=== PATIENT | male | born 1995 | race Two or more races ===

== ENCOUNTER 2018-04-13 08:42 | Day surgery (SDC) | payer OTHER ==
[2018-04-13] VITALS (9 sets, daily range): BP systolic 113–128; BP diastolic 55–96
[~2018-04-13] VITALS: Ht 172.7 cm; Wt 92.5 kg
[~2018-04-13 08:42] MED LIST: Atropine Inj 1mg/10ml Syr IV PRN; DiphenhydrAMINE 50mg/ml Inj IVP PRN; LR 1000ml 1,000 ML IVLG SCH; Labetalol 5mg/ml 20ml vial IV PRN; Midazolam 2mg/2ml Inj IVP PRN; NKM; fentaNYL 100 mcg/2 mL IV PRN
[2018-04-13] MEDS ORDERED: CLONAZEPAM0.25 MG PO (10:59)
[2018-04-13] MEDS ORDERED: IBUPROFEN600 MG ORAL (10:59)
[2018-04-13] MEDS ORDERED: ALPRAZOLAM1 MG ORAL (10:59)
[2018-04-13] MEDS ORDERED: LR 1000ml ONE (13:00)
[2018-04-13] MEDS ORDERED: Lidocaine 1% MPF 10mg/ml 5ml ONE (13:00)
[2018-04-13] MEDS ORDERED: Propofol 200mg/20ml IV ONE (13:00)
--- NOTE | 2018-04-13 13:14 | Short Stay Surgery H&P ---
History of Present Illness History of Present Illness Chief Complaint Abdominal pains/GERDS VALORIE Osborne is a 23 year old male who was admitted on for Abdominal Pain/GERDS Patient History Allergies: Coded Allergies: PENICILLINS (Verified Allergy, Intermediate, 04/13/18) RASH, HIVES PAST MEDICAL HISTORY: (1) Hyperlipidemia Medication History Scheduled Alprazolam* (Xanax*), 1 MG ORAL TID, (Reported) Clonazepam (Clonazepam), 0.25 MG PO NEEDED, (Reported) Scheduled PRN Ibuprofen* (Motrin*), 600 MG ORAL Q6H PRN for For Pain, (Reported) Review of Systems Cardiovascular: Reports: no symptoms Respiratory: Reports: no symptoms Skeletal: Reports: trauma Gastrointestinal: Reports: gastro esophageal reflux disease Genitourinary: Reports: no symptoms Neurologic: Reports: no symptoms Endocrine: Reports: no symptoms Hematologic: Reports: no symptoms Physical Exam Vital Signs Last Vital Signs Date Time Temp Pulse Resp B/P (MAP) Pulse Ox O2 Delivery O2 Flow Rate FiO2 04/13/18 11:02 98.7 84 18 115/67 (83) 97 98.7 04/13/18 10:55 Room Air Skin: normal HENT: normal Heart: normal Lungs: normal Abdomen: abnormal Extremities: normal Genitourinary: normal Plan Plan of Care Upper GI endoscopy with biopsy Preop Interventions None. Summary of Findings See the reports Attestation Are the patient's medical conditions optimized for surgery? Attestation Response: yes Drea Rothman MD Apr 13, 2018 13:14
--- NOTE | 2018-04-13 13:15 | Pre-Procedure Note/Attestation ---
Pre-Procedure Note/Attestation Complete Prior to Procedure Planned Procedure: left Procedure Narrative: Examination o the upper GI tract via endoscopy. Indications for Procedure Pre-Operative Diagnosis: R/O Gastritis/Peptic Ulcer Attestation I attest that I discussed the nature of the procedure; its benefits; risks and complications; and alternatives (and the risks and benefits of such alternatives ), prior to the procedure, with the patient (or the patient's legal environmental marketing representative). I attest that, if there was a reasonable possibility of needing a blood transfusion, the patient (or the patient's legal environmental marketing representative) was given the [facility] standardized written summary, pursuant to the Jeffrey [place] Blood Safety Act ([place] Health and Safety Code # 1645, as amended). I attest that I re-evaluated the patient just prior to the surgery and that there has been no change in the patient's H&P, except as documented below: Drea Rothman MD Apr 13, 2018 13:15
--- NOTE | 2018-04-13 13:38 | Endoscopy Procedure Note ---
Endoscopy Procedure Note General Indication for Procedure: Abdominal pains/GERDs Procedures Performed: EGD - Normal Upper GI endoscopy with minimal bile seen in the stomach. Biopsies obtained from gastric body and GE junction. Specimen: yes Estimated Blood Loss: none Anesthesia Anesthesiologist: Dr. Soares Anesthesia: moderate sedation Medications Medication Given: see anesthesia record Inserted Devices Implant(s) used?: No Quality Quality of Bowel Preparation: Excellent Was there any complications?: No GI Core Measures 50 yrs or older w/o bx or poly: Not Applicable 10yrs. F/U not recommended: Not Applicable If not recommended, why?: Med reason:<3 yrs.: System Reason:<3 yrs.: Drea Rothman MD Apr 13, 2018 13:38
--- NOTE | 2018-04-13 13:39 | Discharge Instructions ---
Discharge Instructions Discharge Instructions Follow up with: Visit the doctor after 2 weeks in the office For Congestive Heart Failure Reminder Report to your physician any weight gain of 5 pounds or more in one week. Drea Rothman MD Apr 13, 2018 13:39
--- NOTE | 2018-04-13 19:00 | Operative Note - Dictated ---
DATE OF OPERATION: 04/13/2018 SURGEON: Drea Rothman M.D. PROCEDURE: Esophagogastroduodenoscopy with biopsy. PREOPERATIVE DIAGNOSIS: Abdominal pain, history of chronic gastroesophageal reflux, rule out peptic ulcer disease, gastritis and esophagitis. POSTOPERATIVE DIAGNOSIS: Normal upper GI endoscopy with evidence of mild bile amount in the stomach. Biopsy was taken from GE junction and gastric body. MEDICATION USED: Per Dr. Soares, anesthesiologist. INSTRUMENT: GIF Olympus upper GI video endoscope. DESCRIPTION OF PROCEDURE: The patient after arriving at the endoscopy unit, was told about risks and benefits of the procedure, which he accepted signed informed consent. At this time, he was put on the left lateral decubitus position. After adequate IV sedation, the scope was gently passed through the cricopharyngeal area, was lodged into the upper esophagus, and gradually advanced towards gastroesophageal junction. The entire length of the esophagus looked normal. No evidence of inflammatory process, ulceration, etc. was found. GE junction also looked normal and at this time, the scope was advanced into the stomach. Gastric cavity was distended with insufflation of air revealing evidence of minimal amount of bile in the stomach, which was suctioned. Gradually, the areas of the fundus and the body and the antrum were examined, which revealed normal gastric mucosa and coverage. No ulcers or tumors or polyps or inflammatory process was seen. At this point, one random biopsy from gastric body and one biopsy from GE junction was obtained and subsequently, the scope was passed through the pylorus. First and second portion of duodenum were found to be also completely normal. At this time, the scope was pulled out and the procedure was terminated. The patient tolerated the procedure well and left the endoscopy room in good condition. Drea Rothman M.D. DR: GAYLE JOB#: [id number] CC:
--- NOTE | 2018-04-13 20:15 | Pre-op HX & Phy Repo 2 SIG ---
DATE OF ADMISSION: 04/13/2018 HISTORY OF PRESENT ILLNESS: The applicant is a 23-year-old gentleman, who is being seen prior to undergoing the procedure for upper GI endoscopy for which, he has been scheduled to receive for evaluation of his gastrointestinal symptoms that he has developed subsequent to his work injury. The applicant basically complained of experiencing pain over the upper part of the abdomen, particularly in the left side and epigastric area. The pains are aggravated by consumption of food especially with the citric and spicy ones. He reports that he has been experiencing these symptoms at least for couple of years. The applicant, however, has not had any history of vomiting blood or nausea etc. There has been no history of rectal bleeding or black stools. The patient is having a history of heartburn, which is significant, which occurred subsequent to his work injury and received multiple medications including nonsteroidal anti-inflammatory agents, however, he was never prescribed any acid suppressors. The patient reports that subsequent to his work injury, he has started to gain weight approximately 40 pounds or more. He denies having any difficulty swallowing such of dysphagia, odynophagia, etc. He denies rectal bleeding. The patient continued to take nonsteroidal anti-inflammatory agents, NSAIDs for the control of his bodily pain secondary to injury that he is currently receiving. The patient denied having had history of gastrointestinal condition before being injured at job site. 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 He started to have some shoulder pain also. As such, the applicant also complains of chronic back pain, which is related to work accident. PAST MEDICAL HISTORY: Basically the applicant has had history of hyperlipidemia and chronic low back pain as mentioned related to the work environment. Also has history of high cholesterol. SURGICAL HISTORY: None significant. CURRENT MEDICATIONS: Xanax, ibuprofen, Atarax, and Zoloft. ALLERGIES: Penicillin. HABITS: The applicant denies drinking alcohol or smoking cigarettes. REVIEW OF SYSTEMS: Basically, history of present illness. The patient has been experiencing some anxiety and depressive mood and sleep problems. PHYSICAL EXAMINATION: GENERAL: Reveals an alert and oriented gentleman, does not seem to be in any acute distress. He looks well developed, well nourished, and overweight. VITAL SIGNS: All stable. HEENT: Normocephalic. Pupils equal in size and reactive to light and accommodation. No visible jaundice. Buccal cavity, tongue midline, well hydrated. No ulcers. NECK: Supple. No JVD, thyromegaly, or adenopathy. CHEST: Clear to auscultation and percussion. No rales or rhonchi. HEART: S1 and S2 normal. Regular rhythm. No gallops or murmur. ABDOMEN: Soft, but there is some areas of tenderness over the upper part of the abdomen, but no organomegaly. No palpable mass noted. Bowel sounds are present. EXTREMITIES: Unremarkable. PRELIMINARY PREOPERATIVE IMPRESSION: 1. Epigastric pain of uncertain etiology, rule out NSAID-induced gastropathy, rule out NSAID-induced peptic ulcer disease, gastritis, and esophagitis. 2. Anxiety and depression and hypercholesterolemia. RECOMMENDATIONS: The applicant is stable to undergo the procedure for upper GI endoscopy for which he has been scheduled. He understands the risks and benefits and will sign the consent. Said Flor Rothman DR: DORITA JOB#: [id number] CC:
== END 2018-04-13 15:15 | disposition home or self-care (01) ==
LOC: GAS 08:42
DX: K29.50 Unspecified chronic gastritis without bleeding (principal); K21.0 Gastro-esophageal reflux disease with esophagitis; K21.9 Gastro-esophageal reflux disease without esophagitis; E78.5 Hyperlipidemia, unspecified; E78.00 Pure hypercholesterolemia, unspecified; F41.9 Anxiety disorder, unspecified; F32.9 Major depressive disorder, single episode, unspecified; G89.29 Other chronic pain; M54.5 Low back pain; R01.1 Cardiac murmur, unspecified; Z88.0 Allergy status to penicillin
CPT/HCPCS: 43239; J2704; J7120; 94003; 94150